=== PATIENT | female | born 1940 | race Caucasian/White ===

== ENCOUNTER 2023-03-09 09:09 | Day surgery (SDC) | payer MEDICARE, OTHER ==
[2023-03-09] MEDS ORDERED: LIDOCAINE HCL 2% 100 MG/5 ML IJ ONE (09:10)
[2023-03-09] MEDS ORDERED: Depo-Medrol 40 MG/ML IM ONE (09:10)
[2023-03-09] MEDS ORDERED: DIPRIVAN 200 MG/20 ML IV ONE (11:28)
[2023-03-09] MEDS ORDERED: Lactated Ringers 1,000 ML IV ONE (11:53)
--- NOTE | 2023-03-09 12:21 | XRAY ---
Indication: Bilateral L4-S1 MBB. Intraoperative fluoroscopy provided for 14 seconds. Single digital spot image submitted for interpretation demonstrates posterior needle tips projecting over the expected left and right L4-S1 nerve roots. Correlate with intraoperative findings/report.
--- NOTE | 2023-03-09 13:32 | XRAY ---
14 seconds of fluoroscopy was used in surgery for a bilateral L4-S1 MBB.
== END 2023-03-09 11:59 | disposition home or self-care (01) ==
LOC: SDC-PAIN 09:09
PROVIDERS: ATTEND Psychiatry & Neurology Pain Medicine
DX: M47.816 Spondylosis without myelopathy or radiculopathy, lumbar region (principal); E11.9 Type 2 diabetes mellitus without complications; Z79.899 Other long term (current) drug therapy
CPT/HCPCS: 64493; 64494; 72020; 77002; 82947; J1030; J2704

== ENCOUNTER 2024-04-19 08:21 | Day surgery (SDC) | payer MEDICARE, OTHER ==
[2024-04-19] MEDS ORDERED: BUPIVACAINE 0.5% VIAL IJ ONE (08:22)
[2024-04-19] MEDS ORDERED: Depo-Medrol 40 MG/ML IM ONE (08:22)
[2024-04-19] MEDS ORDERED: DIPRIVAN 200 MG/20 ML IV ONE (10:26)
--- NOTE | 2024-04-19 12:19 | XRAY ---
Indication: Bilateral L4-S1 MBB. Intraoperative fluoroscopy provided for 16 seconds. Single digital spot image submitted for interpretation demonstrates posterior needle tips projecting over the expected left and right L4-S1 nerve roots. Correlate with intraoperative findings/report.
--- NOTE | 2024-04-19 12:21 | XRAY ---
16 seconds of fluoroscopy was used in surgery for a bilateral L4-S1 MBB.
== END 2024-04-19 10:59 | disposition home or self-care (01) ==
LOC: SDC-PAIN 08:21
PROVIDERS: ATTEND Psychiatry & Neurology Pain Medicine
DX: M47.816 Spondylosis without myelopathy or radiculopathy, lumbar region (principal); E11.9 Type 2 diabetes mellitus without complications
CPT/HCPCS: 64493; 64494; 72020; 77002; 82947; J2704

== ENCOUNTER 2024-06-13 08:55 | Day surgery (SDC) | payer MEDICARE, OTHER ==
[2024-06-13] MEDS ORDERED: Depo-Medrol 40 MG/ML IM ONE (08:56)
[2024-06-13] MEDS ORDERED: LIDOCAINE HCL 1% AMPUL 5 ML IJ ONE (08:56)
[2024-06-13] MEDS ORDERED: BUPIVACAINE 0.5% VIAL IJ ONE (08:56)
--- NOTE | 2024-06-13 10:13 | XRAY ---
Indication: Preop exam. Comparison: None Portable chest hyperinflated and clear. Heart not enlarged. Bony thorax intact with osteopenia and moderate degenerative changes. Impression: Nonacute hyperinflated chest.
[2024-06-13] MEDS ORDERED: propofoL IV ONE (11:08)
--- NOTE | 2024-06-13 12:04 | XRAY ---
12 seconds of fluoroscopy was used in surgery for a right L4-S1 RFA.
--- NOTE | 2024-06-13 12:08 | XRAY ---
Indication: Right L4-S1 RFA. Intraoperative fluoroscopy provided for 12 seconds. 5 digital spot images submitted for interpretation demonstrates posterior needle tips projecting over expected right L4-S1 nerve roots. Correlate with intraoperative findings/report.
== END 2024-06-13 11:45 | disposition home or self-care (01) ==
LOC: SDC-PAIN 08:55
PROVIDERS: ATTEND Psychiatry & Neurology Pain Medicine
DX: M47.816 Spondylosis without myelopathy or radiculopathy, lumbar region (principal); E11.9 Type 2 diabetes mellitus without complications
CPT/HCPCS: 71045; 72100; 77002; 82947; J2704

== ENCOUNTER 2024-06-27 08:55 | Day surgery (SDC) | payer MEDICARE, OTHER ==
[2024-06-27] MEDS ORDERED: LIDOCAINE HCL 1% AMPUL 5 ML IJ ONE (08:56)
[2024-06-27] MEDS ORDERED: methylPREDNISolone acetate IM ONE (08:56)
[2024-06-27] MEDS ORDERED: BUPIVACAINE 0.5% VIAL IJ ONE (08:56)
[2024-06-27] MEDS ORDERED: Lactated Ringers 500 ML IV ONE (09:03)
[2024-06-27] MEDS ORDERED: propofoL IV ONE (10:41)
--- NOTE | 2024-06-27 13:05 | XRAY ---
Indication: Left L4-S1 RFA. Intraoperative fluoroscopy provided for 18 seconds. 3 digital spot image submitted for interpretation demonstrates posterior needle tips projecting over expected left L4-S1 nerve roots. Correlate with intraoperative findings/report.
--- NOTE | 2024-06-27 13:12 | XRAY ---
18 seconds of fluoroscopy was used in surgery for a left L4-S1 RFA.
== END 2024-06-27 11:18 | disposition home or self-care (01) ==
LOC: SDC-PAIN 08:55
PROVIDERS: ATTEND Psychiatry & Neurology Pain Medicine
DX: M47.817 Spondylosis without myelopathy or radiculopathy, lumbosacral region (principal); E11.9 Type 2 diabetes mellitus without complications
CPT/HCPCS: 64635; 64636; 72100; 77002; 82947; 99100; J1010; J2704